=== PATIENT | male | born 1955 | race Caucasian/White ===

== ENCOUNTER 2019-01-07 04:08 | Emergency (ER) | payer BC ==
--- NOTE | 2019-01-07 04:16 | EDPHY ---
H & P Stated Complaint: swallowed his acid reflux while sleeping and feels like his lungs are burni Time Seen by Provider: 01/07/19 04:16 HPI/ROS: HPI CHIEF COMPLAINT: Burning in chest, cough HISTORY OF PRESENT ILLNESS: Patient is a 63-year-old male, he states he suffers from reflux, he was sleeping and approximately half an hour ago he states he felt as burning sensation in his chest, up to his throat and then began coughing. He believes he may have aspirated. Complains of a burning sensation. He also complains of sore throat. Denies CP, or SOB, endorses a cough. Endorses burning sensation in his throat, that caused him to cough. States he has had this happen before many times, "bad reflux" "worried about aspiration" States he ate a large amount of chocolate before going to bed. Past Medical History: GERD, aspiration pneumonia Past Surgical History: Denies recent surgery Social History: Denies drugs alcohol tobacco. Family History: Noncontributory ROS REVIEW OF SYSTEMS: 10 Systems were reviewed and negative with the exception of the elements mentioned in the history of present illness. Exam Constitutional triage nursing summary reviewed, vital signs reviewed, awake/ alert. Vital signs stable. Eyes normal conjunctivae and sclera, EOMI, PERRLA. HENT normal inspection, atraumatic, moist mucus membranes, no epistaxis, neck supple/ no meningismus, no raccoon eyes. Respiratory clear to auscultation bilaterally, normal breath sounds, no respiratory distress, no wheezing. Cardiovascular rate normal, regular rhythm, no murmur, no edema, distal pulses normal. Gastrointestinal soft, non-tender, no rebound, no guarding, normal bowel sounds, no distension, no pulsatile mass. Genitourinary no CVA tenderness. Musculoskeletal no midline vertebral tenderness, full range of motion, no calf swelling, no tenderness of extremities, no meningismus, good pulses, neurovascularly intact. Skin pink, warm, & dry, no rash, skin atraumatic. Neurologic awake, alert and oriented x 3, AAOx3, moves all 4 extremities equally, motor intact, sensory intact, CN II-XII intact, normal cerebellar, normal vision, normal speech. Psychiatric normal mood/affect. Heme/Lymph/Immune no lymphadenopathy. Differential Diagnosis: Differential diagnosis includes but is not limited to: ACS, atypical chest pain, pneumothorax, pneumonia, pulmonary embolism, aortic dissection, congestive heart failure, tumor, musculoskeletal pain, esophageal pain, GERD, peptic ulcer disease, pancreatitis Medical Decision Making: Plan for this patient IV establishment IV fluid bolus , GI cocktail, EKG, chest x-ray, basic labs, and re-evaluate. Re-evaluation: Chest x-ray one view: Negative for acute cardiopulmonary disease image interpreted by myself. Troponin noted be negative EKG interpretation by me on record in [facility] system. Impression time of EKG 5:29 a.m., sinus rhythm rate of 61 no signs of acute ischemia. 0659: Patient re-evaluated this time he received a GI cocktail and states this greatly improved his discomfort. He does not have any chest pain he does endorse a mild cough nonproductive. I was able to review his chest x-ray shows no pneumonia. The patient presented to the emergency room with reflux symptoms and a cough he believes that he may have micro aspirated while sleeping from bad reflux. He states he suffers from bad reflux and ate a bunch of chocolate prior to going sleep. I have ordered him IV Pepcid 20 mg. He is improved after GI cocktail. His EKG is nonischemic. He has a negative troponin A chest x-ray that does not show pneumonia He is requesting an antibiotic to go home on in case he develops a pneumonia I explained that typically reflux and micro respiration does not lead to a pneumonia but typically a pneumonitis. However he states he would like an antibiotic and would hold onto the prescription if he got worse. Do recommend he follows up with his primary care doctor. We discussed return precautions. He understands return emergency room if develops worsening symptoms this includes worsening cough, fever, vomiting, not doing well. Source: Patient - Personal History Current Tetanus/Diphtheria Vaccine: Yes Current Tetanus Diphtheria and Acellular Pertussis (TDAP): Yes - Medical/Surgical History Hx Asthma: Yes Hx Chronic Respiratory Disease: No Hx Diabetes: No Hx Cardiac Disease: No Hx Renal Disease: No Hx Cirrhosis: No Hx Alcoholism: No Hx HIV/AIDS: No Hx Splenectomy or Spleen Trauma: No Other PMH: gerd - Social History Smoking Status: Never smoked Constitutional: Initial Vital Signs Temperature (C) 36.4 C 01/07/19 04:08 Heart Rate 77 01/07/19 04:08 Respiratory Rate 18 01/07/19 04:08 Blood Pressure 154/82 H 03/26/19 04:08 O2 Sat (%) 97 01/07/19 04:08 O2 Delivery Mode Room Air Allergies/Adverse Reactions: No Known Allergies Allergy (Verified 01/07/19 04:12) Home Medications: Medication Instructions Recorded Omeprazole [Prilosec 20 mg] 20 mg PO DAILY 08/05/12 Adderall 10 MG (*) 01/07/19 Amoxicillin/Clavulanate Pot 875 mg PO BID #14 tab 01/07/19 [Augmentin 875 MG TAB (*)] Nexium 01/07/19 Medical Decision Making - Data Points Laboratory Results: Laboratory Results 01/07/19 05:05 01/07/19 05:05 Medications Given: Discontinued Medications Al Hydroxide/Mg Hydroxide (Maalox Susp) 30 ml PO ONCE ONE Stop: 01/07/19 04:36 Last Admin: 01/07/19 04:48 Dose: 30 ml Al Hydroxide/Mg Hydroxide (Maalox Susp) 30 ml PO ONCE ONE Stop: 01/07/19 07:14 Last Admin: 01/07/19 07:24 Dose: 30 ml Famotidine (Pepcid) 20 mg IVP EDNOW ONE Stop: 01/07/19 07:00 Last Admin: 01/07/19 07:08 Dose: 20 mg Hyoscyamine Sulfate (Levsin, Hyomax-Sl) 0.25 mg PO ONCE ONE Stop: 01/07/19 04:36 Last Admin: 01/07/19 04:48 Dose: 0.25 mg Hyoscyamine Sulfate (Levsin, Hyomax-Sl) 0.25 mg PO ONCE ONE Stop: 01/07/19 07:14 Last Admin: 01/07/19 07:24 Dose: 0.25 mg Sodium Chloride (Ns) 1,000 mls @ 0 mls/hr IV EDNOW ONE; Wide Open PRN Reason: Protocol Stop: 01/07/19 04:36 Last Admin: 01/07/19 04:51 Dose: 1,000 mls Lidocaine (Lidocaine 2% Viscous) 15 ml PO ONCE ONE Stop: 01/07/19 04:36 Last Admin: 01/07/19 04:48 Dose: 15 ml Lidocaine (Lidocaine 2% Viscous) 15 ml PO ONCE ONE Stop: 01/07/19 07:14 Last Admin: 01/07/19 07:24 Dose: 15 ml Point of Care Test Results: Chemistry 01/07/19 01/07/19 05:13 05:08 POC Sodium 144 mEq/L mEq/L (135-145) POC Potassium 3.1 mEq/L L mEq/L (3.3-5.0) POC Chloride 102 mEq/L mEq/L (97-110) POC Total CO2 25 mEq/L mEq/L (22-31) POC BUN 18 mg/dL mg/dL (7-23) POC Creatinine 1.0 mg/dL mg/dL (0.7-1.3) POC Glucose 129 mg/dL H mg/dL (70-100) POC Troponin I 0.00 ng/mL ng/mL (0.00-0.08) ISTAT H&H 01/07/19 05:13 POC Hgb 16.7 gm/dL gm/dL (13.7-17.5) POC Hct 49 % % (40-51) Departure - Departure Disposition: Home, Routine, Self-Care Clinical Impression: GERD (gastroesophageal reflux disease) Qualifiers: Esophagitis presence: with esophagitis Qualified Code(s): K21.0 - Gastro- esophageal reflux disease with esophagitis Condition: Good Instructions: Amoxicillin/Clavulanate Potassium (By mouth), Gastroesophageal Reflux Disease (ED) Additional Instructions: 1. Please return to the emergency room if he develops worsening symptoms. Referrals: Harsha Santa MD [Primary Care Provider] - As per Instructions Prescriptions: Amoxicillin/Clavulanate Pot [Augmentin 875 MG TAB (*)] 875 mg PO BID #14 tab
[2019-01-07] MEDS ORDERED: LIDOCAINE 2% VISCOUS 15 ML UDCUP PO ONE ×2 (04:35→07:13)
[2019-01-07] MEDS ORDERED: HYOSCYAMINE SULFATE 0.125 MG TAB PO ONE ×2 (04:35→07:13)
[2019-01-07] MEDS ORDERED: MAG HYDROX/AL HYDROX/SIMETH 30 ML UDCUP PO ONE ×2 (04:35→07:13)
[2019-01-07] MEDS ORDERED: NS 1,000 ML IV ONE (04:35)
[2019-01-07 05:15] LABS: PLATELET COUNT 270 10^3/uL (150-400)
[2019-01-07] MEDS ORDERED: FAMOTIDINE 20 MG/2 ML SDV IVP ONE (06:59)
[2019-01-07] MEDS ORDERED: LIDOCAINE 2% VISCOUS 15 ML UDCUP ONE (07:22)
[2019-01-07 07:30] VITALS: BP 122/74
--- NOTE | 2019-01-07 07:44 | CPEKG ---
Test Reason : OPEN Blood Pressure : / mmHG Vent. Rate : 061 BPM Atrial Rate : 061 BPM P-R Int : 150 ms QRS Dur : 092 ms QT Int : 457 ms P-R-T Axes : -01 041 033 degrees QTc Int : 461 ms Sinus rhythm Confirmed by Diego Carson ([id number]) on 01/07/2019 7:43:51 AM Referred By: Diego Carson Confirmed By:Diego Carson
== END 2019-01-07 07:33 | disposition home or self-care (01) ==
DX: K21.0 Gastro-esophageal reflux disease with esophagitis (principal); E86.9 Volume depletion, unspecified
CPT/HCPCS: 82435-PO; 82565-PO; 82947-PO; 84132-PO; 84295-PO; 84484-ER; 84520-PO; 85014-ER; 96374